=== PATIENT | female | born 1930 | race Caucasian/White ===

== ENCOUNTER 2017-05-07 14:01 | Inpatient (IN) ==
--- NOTE | 2017-05-07 14:25 | Emergency Department Note ---
START Narrative - START START: I examined this patient and my medical decision-making was reviewed with the TUBE OPERATOR/PA/Advanced Practice Nurse/Resident Physician. I agree with the documented findings, disposition and treatment plan as described except to the extent set forth below. ED attending: Patient's emergency medicine resident Dr. JOSE ALEJANDRO ZULETA. Please see copy of this note for H&P evaluation and management and ED disposition. We both had independent [id number] time in contact with this patient. Briefly: A 87-year-old female by EMS after mechanical fall while helping to move family member. Patient, sat down and injured her right proximal thigh. She has some soft tissue swelling possibly hematoma and decreased range of motion concerning for possible joint injury or fracture. Patient getting x- rays. Patient is not on any blood thinners. Disposition pending.
--- NOTE | 2017-05-07 14:27 | Emergency Department Note ---
Disposition Clinical Impression: Intertrochanteric fracture of femur Qualifiers: Encounter type: initial encounter Fracture type: closed Fracture alignment: displaced Laterality: right Qualified Code(s): S72.141A - Displaced intertrochanteric fracture of right femur, initial encounter for closed fracture Subtrochanteric fracture of femur Qualifiers: Encounter type: initial encounter Fracture type: closed Fracture alignment: displaced Laterality: right Qualified Code(s): S72.21XA - Displaced subtrochanteric fracture of right femur, initial encounter for closed fracture Disposition: Admitted As Inpatient Condition: Fair Time of Disposition: 16:42 Fall HPI - General Chief Complaint: ED Fall Stated Complaint: fall Time Seen by Provider: 05/07/17 14:03 Source: patient Mode of arrival: EMS Limitations: no limitations Nursing Notes Reviewed: Yes Vital Signs Reviewed: Yes - History of Present Illness HPI Narrative: Patient presents to the ED via EMS after a fall. Patient reports that her daughter was recently seen at orthopedics for foot fracture and was placed in a cast. They were helping her ambulate back to their home in a walker when her daughter started to fall backwards. Patient states that she sat on the ground and her daughter fell onto her right hip. Had immediate pain and a snapping sensation in her proximal femur. States that since then she has been nonambulatory. Has no pelvis pain or back pain. No head injury, loss of consciousness. No chest pain or shortness of breath. Is not on any blood thinners - Related Data Home Medications Medication Instructions Recorded Confirmed Calcium Carbonate [Calcium] 600 mg PO BID 11/01/16 05/07/17 CarBAMazepine [Carbamazepine ER] 100 mg PO BID 11/01/16 05/07/17 Cholecalciferol (Vitamin D3) 2,000 unit PO BID 11/01/16 05/07/17 [Vitamin D3] Docusate [Colace] 100 mg PO BID 11/01/16 05/07/17 Flurbiprofen 100 mg PO HS PRN 11/01/16 05/07/17 Inulin [Fiber Gummies] 2 gm PO QAM 11/01/16 05/07/17 Tramadol HCl [Ultram] 50 mg PO Q4H PRN 11/01/16 05/07/17 Sennosides/Docusate Sodium [Senna 1 each PO QPM PRN 11/06/17 11/06/17 Plus] Allergies Allergy/AdvReac Type Severity Reaction Status Date / Time codeine Allergy Rash Verified 11/01/16 19:10 Sulfa (Sulfonamide Allergy Rash Verified 11/01/16 19:10 Antibiotics) All systems ED: reviewed and negative except as stated. Constitutional: Denies: fever Cardiovascular: Denies: chest pain Gastrointestinal: Denies: vomiting Musculoskeletal: Reports: as per HPI. Denies: back pain Fall PMH - Past Medical History Medical history: Reports: arthritis Psychiatric history: Reports: no psych history - Social History Smoking Status: Never smoker Alcohol use: Reports: none Drug use: Reports: none Physical Exam - General Limitations: no limitations General appearance: alert, in no apparent distress - Head Head exam: atraumatic, normocephalic, normal inspection - Eye Eye exam: Present: normal appearance, PERRL, EOMI - Neck Neck exam: Present: normal inspection, full ROM, trachea midline - Chest Chest inspection: Present: normal inspection, symmetric chest wall rise - Respiratory Respiratory exam: Present: normal lung sounds bilaterally - Cardiovascular Cardiovascular exam: Present: regular rate, normal rhythm, normal heart sounds - Abdominal Exam Abdominal exam: Present: soft, Non-Tender. Absent: tenderness, distention, guarding, rebound, rigidity - Expanded Lower Extremity Exam Hip/Pelvis exam: Present: normal inspection, external rotation, pelvis stable. Absent: tenderness Upper leg exam: Present: tenderness, swelling, deformity (proximal). Absent: crepitus, dislocation Knee exam: Present: normal inspection, full ROM Lower leg exam: Present: normal inspection, full ROM Ankle exam: Present: normal inspection, full ROM Foot/toe exam: Present: normal inspection, full ROM Neurovascular/Tendon exam: Present: normal capillary refill. Absent: pulse deficit, sensory deficit - Back Exam Back exam: Present: normal inspection, full ROM. Absent: tenderness - Neurological Exam Neurological exam: Present: alert, oriented X3 - Psychiatric Psychiatric exam: Present: normal affect, normal mood - Skin Skin exam: Present: warm, dry, intact, normal color Course Course Narrative: Patient presenting with a mechanical fall with suspected right femur fracture. We will get x-rays. If broken. We will get preop labs and admit. - Reevaluation(s) Reevaluation #1: Patient has a significantly displaced intertrochanteric and subtrochanteric right femur fracture. Spoke with the on-call orthopedic surgeon and they will take the patient to the OR. Patient admitted to the hospitalist service. Preop labs ordered, EKG ordered, chest x-ray ordered. Vital Signs Temperature 97.5 F L 05/07/17 14:05 Pulse Rate 79 05/07/17 14:05 Respiratory Rate 16 05/07/17 14:05 Blood Pressure 146/84 05/07/17 14:05 O2 Sat by Pulse Oximetry 95 05/07/17 14:05 Temperature 97.5 F L 05/07/17 14:05 Pulse Rate 84 05/07/17 16:13 Respiratory Rate 16 05/07/17 16:13 Blood Pressure 155/70 05/07/17 16:13 O2 Sat by Pulse Oximetry 98 05/07/17 16:13 Oxygen Delivery Oxygen Delivery Room Air Fall - Medical Records Medical records reviewed: Yes I reviewed the patient's medical records. - Lab Data Lab results reviewed: Yes I reviewed the patient's lab results. Result diagrams: 05/07/17 15:00 05/07/17 15:00 Lab Results 05/07/17 05/07/17 05/07/17 Range/Units 15:00 15:00 15:00 WBC 4.4 (4.3-11.1) K/mcL RBC 3.88 (3.82-4.97) M/mcL Hgb 12.7 (11.5-15.4) g/dL Hct 38.8 (35.3-44.9) % MCV 100.0 (83.0-100.0) fL MCH 32.7 (28.0-33.3) pg MCHC 32.7 (31.6-35.5) g/dL RDW 13.2 (11.5-14.5) % Plt Count 232 (140-400) K/mcL MPV 9.5 (9.4-12.4) fL Immature Gran % 0.5 (0-4) % Seg Neutrophils % 65.8 % Lymphocytes % 20.0 % Monocytes % 9.6 % Eosinophils % 3.2 % Basophils % 0.9 % Neutrophils # 2.9 (1.6-8.9) K/mcL Lymphocytes # 0.9 (0.6-4.6) K/mcL Monocytes # 0.4 (0.0-1.3) K/mcL Eosinophils # 0.1 (0.0-0.6) K/mcL Basophils # 0.0 (0.0-0.2) K/mcL PT 10.7 (9.4-12.1) Seconds INR 1.0 APTT 28.0 (26.0-36.0) Seconds Sodium 141 (136-145) mEq/L Potassium 4.1 (3.5-4.5) mEq/L Chloride 104 (98-109) mEq/L Carbon Dioxide 28 (19-29) mEq/L BUN 18 (7-20) mg/dL Creatinine 0.77 (0.57-1.11) mg/dL Est GFR ( Amer) > 60 (> 60) Est GFR (Non-Af Amer) > 60 (> 60) BUN/Creatinine Ratio 23 (6-26) Glucose 110 H (70-99) mg/dL Calculated Osmolality 295 (280-300) Calcium 9.5 (8.6-10.8) mg/dL - Radiology Data Radiology results reviewed: Yes I reviewed the patient's radiology results. Femur X-Ray 05/07/17 14:19 IMPRESSION: Acute, comminuted, displaced, markedly angulated right intertrochanteric/subtrochanteric fracture. Osteopenia. D/ /07/2017 15:12:37 Jam Escobar MD / gustavo Interpreting Provider: Jam Escobar MD Pelvis X-Ray 05/07/17 14:25 IMPRESSION: Acute, comminuted, displaced, markedly angulated right intertrochanteric/subtrochanteric fracture. Osteopenia. D/ 05/07/2017 15:12:37 Jam Escobar MD / gustavo Interpreting Provider: Jam Escobar MD - EKG Data EKG attestation: Yes I reviewed and interpreted this EKG. EKG results narrative: Sinus rhythm, rate 81, MO interval 187, QRS 93, QTc 387, normal axis, no acute ischemic changes
[2017-05-07 15:11] LABS: Basophils % 0.9 %; Eosinophils # 0.1 K/mcL (0.0-0.6); Eosinophils % 3.2 %; Hematocrit 38.8 % (35.3-44.9); Hemoglobin 12.7 g/dL (11.5-15.4); Immature Granulocytes % 0.5 % (0-4); Lymphocytes # 0.9 K/mcL (0.6-4.6); Mean Corpuscular HGB Conc 32.7 g/dL (31.6-35.5); Mean Corpuscular Hemoglobin 32.7 pg (28.0-33.3); Mean Platelet Volume 9.5 fL (9.4-12.4); Monocytes # 0.4 K/mcL (0.0-1.3); Monocytes % 9.6 %; Neutrophils # 2.9 K/mcL (1.6-8.9); Platelet Count 232 K/mcL (140-400); Red Blood Count 3.88 M/mcL (3.82-4.97); Red Cell Distribution Width 13.2 % (11.5-14.5); Segmented Neutrophils % 65.8 %
[2017-05-07 15:24] LABS: BUN/Creatinine Ratio 23 (6-26); Blood Urea Nitrogen 18 mg/dL (7-20); Calcium 9.5 mg/dL (8.6-10.8); Carbon Dioxide 28 mEq/L (19-29); Chloride 104 mEq/L (98-109); Glucose 110 mg/dL (70-99); Osmolality,Calculated 295 (280-300); Potassium 4.1 mEq/L (3.5-4.5); Sodium 141 mEq/L (136-145); eGFR For African Americans > 60 (> 60); eGFR For Non-African Americans > 60 (> 60)
[2017-05-07 15:25] LABS: Prothrombin Time 10.7 Seconds (9.4-12.1)
[2017-05-07] MEDS ORDERED: Sennosides/Docusate Sodium TABLET PO PRN ×2 (16:05→18:56)
[2017-05-07] MEDS ORDERED: traMADol 50 MG TABLET PO PRN (16:05)
[2017-05-07] MEDS ORDERED: Naloxone 0.4 MG/ML INJ IVP PRN ×3 (16:11→18:56)
--- NOTE | 2017-05-07 16:34 | Internal Med History&Physical ---
Date of Encounter: 05/07/17 Time of Encounter: 16:32 Assessment and Plan (1) Right femoral fracture Current visit: Yes Status: Acute Mildly commuted fracture of right intertrochanteric and subtrochanteric femur, traumatic fall this afternoon. Swelling/deformity noted, mild tenderness to palpation. Patient reports pain is tolerable. NSR, hemodynamically stable and no distress this time. Patient appears good functional capacity, denies any cardiopulmonary disease, or renal disease. Consults orthopedic surgery-patient will need traction and surgical repair; Dr. Becerra spoke with ortho Continue home tramadol for pain management EKG obtained for surgical clearance normal sinus rhythm. DVT prophylaxis for now Qualifiers: Encounter type: initial encounter Femur location: intertrochanteric Fracture type: closed Fracture alignment: displaced Qualified Code(s): S72.141A - Displaced intertrochanteric fracture of right femur, initial encounter for closed fracture Internal Medicine - H&P: HPI Chief complaint: Right hip fracture Admitted From: Home Plans for Post Hospital Care: Home History of present illness: Ms. Lara is a 87 year old female with no prior past medical history presents to the [facility] today for a follow, not experiencing right hip pain. She reports that she was helping her daughter do back to the car from an appointment [facility] joint, her daughter lost her balance knocking her down and landing on her right hip. Reports that she heard a snap sound began experiencing pain. X-ray of the pelvis reveals mildly comminuted fracture of right intertrochanteric and subtrochanteric femur Past Med Surg Social Fam HX - Past Medical History Medical history: arthritis Psychiatric history: no psych history - Social History Smoking Status: Never smoker Smokeless Tobacco Status: No Alcohol use: none Drug use: none - Additional Family History Additional family history: Noncontributory Internal Medicine - H&P: Meds Calcium Carbonate [Calcium] 600 mg PO BID 11/01/16 [History] CarBAMazepine [Carbamazepine ER] 100 mg PO BID 11/01/16 [History] Cholecalciferol (Vitamin D3) [Vitamin D3] 2,000 unit PO BID 11/01/16 [History] Docusate [Colace] 100 mg PO BID 11/01/16 [History] Flurbiprofen 100 mg PO HS PRN 11/01/16 [History] Inulin [Fiber Gummies] 2 gm PO QAM 11/01/16 [History] Tramadol HCl [Ultram] 50 mg PO Q4H PRN 11/01/16 [History] Sennosides/Docusate Sodium [Senna Plus] 1 each PO QPM PRN 05/07/17 [History] 3 Allergy/AdvReac Type Severity Reaction Status Date / Time codeine Allergy Rash Verified 11/01/16 19:10 Sulfa (Sulfonamide Allergy Rash Verified 11/01/16 19:10 Antibiotics) All Systems PM: A 10-system review of systems was performed and is negative for pertinent findings except as documented above in the HPI. - Cardiovascular Cardiovascular ROS IM: no chest pain, no diaphoresis, no dyspnea, no lightheadedness, no palpitations, no syncope - Musculoskeletal Musculoskeletal ROS IM: as per HPI, deformity, limited range of motion - Constitutional Vitals: Temp Pulse Resp BP Pulse Ox 97.5 F L 84 16 155/70 98 05/07/17 14:05 05/07/17 16:13 05/07/17 16:13 05/07/17 16:13 05/07/17 16:13 General appearance: Present: cooperative, A&O X 3, answers questions appropriately - Respiratory Respiratory exam: Present: CTAB. Absent: accessory muscle use, rales, rhonchi, wheezes - Cardiovascular Cardiovascular exam: Present: RRR, +S1, +S2. Absent: diastolic murmur, gallop, rubs, systolic murmur - Extremities Exam Extremities exam: Present: normal capillary refill, warm, radial pulses palpable and symmetrical. Absent: calf tenderness, full ROM, mottling, pedal edema, tenderness - Expanded Lower Extremities Exam Upper Leg exam: Absent: full ROM (WM) Knee exam: Absent: full ROM (WM) Lower Leg exam: Absent: full ROM (WM) Gait: Present: not tested/not observed, unable to bear weight Internal Med - H&P Results - Labs CBC & Chem 7: 05/07/17 15:00 05/07/17 15:00 - EKG Data -: EKG Interpreted by Myself EKG shows normal: sinus rhythm - EKG Data Prior EKG available for review: yes When compared to previous EKG: there is no significant change Interpretation IM: normal EKG - Diagnostic Studies Other Images Status: image reviewed by me Additional comments: Acute, comminuted, displaced, markedly angulated right intertrochanteric/subtrochanteric fracture. Osteopenia.
[2017-05-07] MEDS ORDERED: Ondansetron 4 MG/2 ML VIAL ONE (17:00)
[2017-05-07] MEDS ORDERED: *HR* Rocuronium Bromide 50 MG/5 ML VIAL ONE (17:00)
[2017-05-07] MEDS ORDERED: Dexamethasone 4 MG/ML VIAL ONE (17:00)
[2017-05-07] MEDS ORDERED: *HR* Etomidate 40 MG/20 ML VIAL IVP ONE (17:00)
[2017-05-07] MEDS ORDERED: Lidocaine -MPF 2% 2 ML VIAL ONE (17:00)
[2017-05-07] MEDS ORDERED: *HR* Succinylcholine 200 MG/10 ML VIAL IVP ONE (17:00)
[2017-05-07] MEDS ORDERED: Lidocaine -MPF 4% 5 ML AMPUL ONE (17:00)
[2017-05-07] MEDS ORDERED: *HR* Propofol 200 MG/20 ML VIAL IVP ONE (17:02)
[2017-05-07] MEDS ORDERED: *HR* FentaNYL (PF) 100 MCG/2 ML VIAL ONE (17:02)
--- NOTE | 2017-05-07 17:03 | Orthopedic Consult Note ---
Date of Encounter: 05/07/17 Time of Encounter: 16:00 Assessment and Plan (1) Intertrochanteric fracture of femur Current Visit: Yes Status: Acute Patient evaluated in ED. Patient reports that her daughter fell on her this afternoon, patient fell to hard surface outside. XRAYs reviewed - revealed subtrochanteric and intertrochanteric femur fractures. Orthopedic recommendations discussed with the patient, both conservative and surgical. Patient opted to proceed with surgical repair, to optimize recovery and future ambulation. Consent reviewed with patient, plan for OR today with for a Right hip Open reduction and intramedullary nail fixation. Patient last ate at 8AM, nothing to eat or drink since this time. Patient agreed to consent, and signed. All questions were addressed and answered. Batista catheter placed by ED. NPO. Bedrest. DVT prophylaxis will be needed. I spoke with , admitting hospitalist, and he has cleared the patient for surgery. Qualifiers: Encounter type: initial encounter Fracture type: closed Fracture alignment: displaced Laterality: right Qualified Code(s): S72.141A - Displaced intertrochanteric fracture of right femur, initial encounter for closed fracture (2) Subtrochanteric fracture of femur Current Visit: Yes Status: Acute Qualifiers: Encounter type: initial encounter Fracture type: closed Fracture alignment: displaced Laterality: right Qualified Code(s): S72.21XA - Displaced subtrochanteric fracture of right femur, initial encounter for closed fracture History of Present Illness Chief complaint: Right HPI: Patient seen and evaluated in ED. Ms. Lara is a 87 year old female, sustained a Right Femur Fracture after he daughter fell on her this afternoon while she was helping her get out of the car. Patient denies hitting her head, LOC, dizziness or N/V. She was unable to ambulate secondary to pain in her right hip. She denies N/T into RLE. Prior to her fall, she was ambulating well on her own without assistance. Pain controlled currently with pain medication given in ED. XRAYS in the ED: XR/XR femur RT IMPRESSION: Acute, comminuted, displaced, markedly angulated right intertrochanteric/subtrochanteric fracture. Osteopenia. Patient denies previous trauma or fracture. She is otherwise healthy, takes NSAID for her left knee pain and occasionally Tramadol at night for pain. Past Med Surg Social Fam HX - Past Medical History Medical history: arthritis Psychiatric history: no psych history - Social History Smoking Status: Never smoker Smokeless Tobacco Status: No Alcohol use: none Drug use: none Medications and Allergies Calcium Carbonate [Calcium] 600 mg PO BID 11/01/16 [History] CarBAMazepine [Carbamazepine ER] 100 mg PO BID 11/01/16 [History] Cholecalciferol (Vitamin D3) [Vitamin D3] 2,000 unit PO BID 11/01/16 [History] Docusate [Colace] 100 mg PO BID 11/01/16 [History] Flurbiprofen 100 mg PO HS PRN 11/01/16 [History] Inulin [Fiber Gummies] 2 gm PO QAM 11/01/16 [History] Tramadol HCl [Ultram] 50 mg PO Q4H PRN 11/01/16 [History] Sennosides/Docusate Sodium [Senna Plus] 1 each PO QPM PRN 05/07/17 [History] 3 Allergy/AdvReac Type Severity Reaction Status Date / Time codeine Allergy Rash Verified 11/01/16 19:10 Sulfa (Sulfonamide Allergy Rash Verified 11/01/16 19:10 Antibiotics) All Systems Reviewed: A 10-system review of systems was performed and is negative for pertinent findings except as documented above in the HPI. Physical Exam - Constitutional Vitals: Temp Pulse Resp BP Pulse Ox 97.5 F L 84 16 155/70 98 05/07/17 14:05 05/07/17 16:13 05/07/17 16:13 05/07/17 16:13 05/07/17 16:13 General appearance IM: mild distress, A&O X 3, answers questions appropriately - Fracture right hip Location of fracture: Right Femur - intertrochanteric, subtrochanteric Appearance: swelling, other (shortened and ER) Compartments: soft Distal extremity neurovascularly intact: Yes Proximal joint involvement: No Distal joint involvement: No Other injury: muscle injury: no, tendon injury: no, vascular injury: no, nerve injury: no Results - Labs Result Diagrams: 05/07/17 15:00 05/07/17 15:00 Labs: Abnormal lab results Glucose 110 mg/dL (70-99) H 05/07/17 15:00 All other labs normal. - Diagnostic results Hip x-ray: report reviewed, image reviewed Consult Discharge Plan - Plan Referrals: Ewelina Leonard MD [Primary Care Provider] -
[2017-05-07] MEDS ORDERED: Acetaminophen IV 1,000 MG/100 ML INFUS..BTL ONE (17:09)
--- NOTE | 2017-05-07 17:18 | Anesthesia Evaluation PreOp ---
Date of Encounter: 05/07/17 Time of Encounter: 17:17 - Past History Planned Operation: R hip TFN Cardiac History: Denies any Significant Hx Pulmonary History: Denies Any Significant HX LEAD QUALITY CONTROL TECHNICIAN History: Denies Any Significant HX Other Medical History: Other (arthritis) Anesthesia History: No Prior Anesthetic Complications Alcohol Use: none Drug use: none Medications and Allergies Calcium Carbonate [Calcium] 600 mg PO BID 11/01/16 [History] CarBAMazepine [Carbamazepine ER] 100 mg PO BID 11/01/16 [History] Cholecalciferol (Vitamin D3) [Vitamin D3] 2,000 unit PO BID 11/01/16 [History] Docusate [Colace] 100 mg PO BID 11/01/16 [History] Flurbiprofen 100 mg PO HS PRN 11/01/16 [History] Inulin [Fiber Gummies] 2 gm PO QAM 11/01/16 [History] Tramadol HCl [Ultram] 50 mg PO Q4H PRN 11/01/16 [History] Sennosides/Docusate Sodium [Senna Plus] 1 each PO QPM PRN 05/07/17 [History] 3 Allergy/AdvReac Type Severity Reaction Status Date / Time codeine Allergy Rash Verified 11/01/16 19:10 Sulfa (Sulfonamide Allergy Rash Verified 11/01/16 19:10 Antibiotics) - Meds/Allergy Pre-op Review Medications Reviewed: Yes Allergies Reviewed: Yes Beta Blockers on Current Med List: No Anesthesia Results - Labs 05/07/17 15:00 05/07/17 15:00 Anesthesia Exam Last Vital Signs Temp 97.5 F L 05/07/17 14:05 Pulse 84 05/07/17 16:13 Resp 16 05/07/17 16:13 BP 155/70 05/07/17 16:13 Pulse Ox 98 05/07/17 16:13 Weight: 61 kg NPO (# of Hours): > 8 hrs - HEENT Pupil (Motor): Pupils equal, EOMI Mallampati: II Teeth: Normal Oral Opening: Greater than 3 - LEAD QUALITY CONTROL TECHNICIAN LOC: Oriented LEAD QUALITY CONTROL TECHNICIAN Motor: Normal RUE, Normal LUE, Normal RLE, Normal LLE, Normal Face - Cardiac Rhythm: Regular Murmur: None - Pulmonary Breath Sounds: bilateral Clear Respiratory Effort: Symmetrical Anesthesia Assess/Plan ASA Score: 2 Modified Grafton Scale for Level of Consciousness: Cooperative, oriented, and tranquil Anesthetic Plan: General Monitoring Plan: Standard Monitors Recovery Plan: PACU
[2017-05-07] MEDS ORDERED: EPHEDrine 50 MG/ML VIAL ONE ×2 (17:23→18:28)
[2017-05-07] MEDS ORDERED: Ondansetron 4 MG/2 ML VIAL IVP PRN ×2 (17:49→18:21)
--- NOTE | 2017-05-07 17:51 | Event Note ---
Date of Encounter: 05/07/17 Time of Encounter: 17:50 Patient seen and examined with nurse practitioner. hip fracture after mechanical fall. Patient has good functional capacity > 4 mets. No prior cardiac history. No chest pain with exertion. No clinical predictors. EKG shows no ST segment shifts. She should be able to tolerate surgery with no need for further preoperative cardiac testing. She is full code
[2017-05-07] MEDS ORDERED: 0.9 % Sodium Chloride 1,000 ML IVC SCH (18:00)
[2017-05-07] MEDS ORDERED: *HR* HYDROmorphone (PF) 1 MG/ML SYRINGE IVP PRN ×2 (18:21→18:56)
--- NOTE | 2017-05-07 18:37 | Orthopedic Operative Note ---
Date of procedure: 05/07/17 Pre-op diagnosis: Displaced right subtrochanteric hip fracture Post-op diagnosis: same Procedure: Procedure: Right hip open reduction intramedullary nail fixation Estimated blood loss: 200 cc Hardware: Metal: Synthes 130 degree 10 x 210 TFN, 95 helical blade, 36 mm distal locking bolt, one super cable Procedural Notes: Displaced subtrochanteric hip fracture right Operative procedure: The patient was brought to the operating room and placed on the operating room table. After general anesthesia was administered the well leg was place in the well leg clifford and the operative leg was placed in the fracture leg clifford. All pressure points were padded appropriately. The operative extremity was prepped and draped in the sterile surgical fashion patient received IV antibiotic prior to skin incision. A standard direct lateral approach was made over the entry point of the greater trochanter, the incision was made through the skin and subcutaneous tissue hemostasis was obtained with Bovie cautery. Using careful sharp dissection the fascia was identified and incised, flouroscopic assistance was used to identify the entry point. The guidepin was placed at the entry point using fluroscopic assistance, it was over reamed with the proximal reamer. The 10 mm x 210 mm nail was placed through the entry hole, across the fracture site into the distal fragment the reduction was improved but not acceptable. An incision was made at the area of the fracture. Incision made through skin subcutaneous case tissue hemostasis was obtained Bovie cautery using careful blunt dissection fascia was identified and incised. The vastus lateralis fascia was incised as well muscle was elevated up one super cable was passed submuscularly around the fracture site to help reduce the 2 fragments. Reduction was acceptable in AP and lateral planes. A guide pin was placed through the proximal locking guide from the lateral femur through the nail across the fracture site into the femoral head, it was over reamed with the reamer to a depth of 95 mm. The 95 mm helical blade was placed over the guide pin through the nail into the femoral head, locked in place with the proximal locking bolt. 36 mm Distal locking bolt was placed through the distal locking guide. position of hardware and fracture reduction found to be acceptable with fluroscopic assistance. The 2 wounds was irrigated. Fascia was closed with a running #2 PDS suture. The deep tissue was irrigated and closed deep with #1 PDS suture superficially with 0 PDS suture and skin was closed with zip tie. The patient was placed in a sterile dressing The patient was extubated and transferred to the recovery room in stable condition. Anesthesia: GETA Surgeon: Michelet Live Condition: stable Disposition: PACU
[2017-05-07] MEDS ORDERED: *HR* OxyCODONE Immed Rel 5 MG TABLET PO PRN ×2 (18:56)
[2017-05-07] MEDS ORDERED: Sennosides 8.6 MG TABLET PO PRN (18:56)
[2017-05-07] MEDS ORDERED: FLURBIPROFEN 100 MG PO PRN (18:56)
[2017-05-07] MEDS ORDERED: Ringers Solution, Lactated 1,000 ML ONE (19:02)
--- NOTE | 2017-05-07 19:10 | Anesthesia Evaluation Post Op ---
Date of Encounter: 05/07/17 Time of Encounter: 19:09 - Vital Signs Vital Signs: Last Vital Signs Temp 97.5 F L 05/07/17 14:05 Pulse 84 05/07/17 16:13 Resp 16 05/07/17 16:13 BP 155/70 05/07/17 16:13 Pulse Ox 98 05/07/17 16:13 - Lungs Lungs: Clear Ascult./Percussion - Airway Airway: Non-obstructed - Cardiovascular Regular Rate - Mental Status Mental Status: Alert & Oriented, Answers Appropriately - Pain Pain Scale: 2 - Nausea Vomiting Nausea Vomiting: Not Present - Hydration Hydration: NPO - Discharge PostOp Status: Transfer Patient to floor
[2017-05-07 19:12] LABS: Hematocrit 31.9 % (35.3-44.9)
[2017-05-07 19:19] LABS: Hemoglobin 10.6 g/dL (11.5-15.4)
[2017-05-07] MEDS: Ringers Solution, Lactated 1,000 ML IVC SCH (19:45)
[2017-05-07] MEDS ORDERED: CarBAMazepine 100 MG TABLET PO SCH (21:00)
[2017-05-07] MEDS: CarBAMazepine 100 MG TABLET PO SCH (21:32)
[2017-05-07] MEDS: traMADol 50 MG TABLET PO PRN (21:35)
[2017-05-08] MEDS: CeFAZolin Premix DUPLEX 2,000 MG/50 ML BAG IVPB SCH ×2 (00:07→07:43)
--- NOTE | 2017-05-08 06:50 | Orthopedics Progress Note ---
Date of Encounter: 05/08/17 Time of Encounter: 06:50 Subjective Interval history: Patient was seen this morning doing well without complaints. Afebrile vital signs stable. Operative extremity: Neurovascularly intact Dressing clean dry and intact Calves nontender Assessment and plan: Continue with postoperative care Objective Vital signs: Vital Signs Temp Pulse Resp BP Pulse Ox 05/08/17 03:35 98.8 F 85 18 98/65 94 05/08/17 01:13 97.7 F 95 17 103/50 95 05/07/17 22:00 97.6 F 86 15 128/53 99 05/07/17 21:00 97.7 F 78 14 122/53 100 05/07/17 20:34 97.9 F 85 15 128/69 100 05/07/17 20:13 100 05/07/17 20:00 97.9 F 89 15 133/70 100 05/07/17 19:45 97.9 F 88 16 102/67 100 05/07/17 19:20 98.1 F 91 15 130/67 100 05/07/17 19:10 90 16 122/67 100 05/07/17 19:00 88 16 112/53 100 05/07/17 18:50 98.1 F 84 16 126/60 99 Intake and Output 05/07/17 05/07/17 05/08/17 15:59 23:59 07:59 Intake Total 100 / 100 400 / 400 Output Total 200 / 200 450 / 450 Balance -100 / -100 -50 / -50 Intake: IV Fluids 50 / 50 Ancef Premix DUPLEX 2,000 mg In 50 / 50 50 ml @ 100 mls/hr IVPB Q8HR [facility] Rx#:[id number] Oral 100 / 100 350 / 350 Output: Estimated Blood Loss 200 / 200 Catheter 450 / 450 - Labs CBC & BMP: 05/07/17 19:01 05/07/17 15:00 Labs: Abnormal lab results Hgb 10.6 g/dL (11.5-15.4) L D 05/07/17 19:01 Hct 31.9 % (35.3-44.9) L 05/07/17 19:01 Glucose 110 mg/dL (70-99) H 05/07/17 15:00 - VTE Documentation of Mechanical Device: Venous foot pump, device Consult Discharge Plan - Plan Referrals: Ewelina Leonard MD [Primary Care Provider] -
[2017-05-08] MEDS: Ringers Solution, Lactated 1,000 ML IVC SCH (07:43)
[2017-05-08] MEDS: Cholecalciferol (D-3) 1,000 UNIT TABLET PO SCH (07:43)
[2017-05-08] MEDS: CarBAMazepine 100 MG TABLET PO SCH ×2 (07:43→22:06)
[2017-05-08 08:15] LABS: Hematocrit 31.9 % (35.3-44.9); Hemoglobin 10.1 g/dL (11.5-15.4)
[2017-05-08] MEDS ORDERED: INULIN 2 GM PO SCH (09:00)
[2017-05-08] MEDS: traMADol 50 MG TABLET PO PRN ×3 (12:05→22:08)
[2017-05-08] MEDS: Aspirin Enteric Coated 81 MG Tablet PO SCH (17:16)
--- NOTE | 2017-05-08 23:27 | Internal Med Progress Note ---
Date of Encounter: 05/08/17 Time of Encounter: 13:17 - Assessment and plan (1) Right femoral fracture Current Visit: Yes Status: Acute Assessment and plan: S/p right hip open reduction intramedullary nail fixation on 05/07. Patient doing well. Ortho following. Continue supportive care; pain management. Qualifiers: Encounter type: initial encounter Femur location: intertrochanteric Fracture type: closed Fracture alignment: displaced Qualified Code(s): S72.141A - Displaced intertrochanteric fracture of right femur, initial encounter for closed fracture (2) Intertrochanteric fracture of femur Current Visit: Yes Status: Acute Qualifiers: Encounter type: initial encounter Fracture type: closed Fracture alignment: displaced Laterality: right Qualified Code(s): S72.141A - Displaced intertrochanteric fracture of right femur, initial encounter for closed fracture (3) Subtrochanteric fracture of femur Current Visit: Yes Status: Acute Qualifiers: Encounter type: initial encounter Fracture type: closed Fracture alignment: displaced Laterality: right Qualified Code(s): S72.21XA - Displaced subtrochanteric fracture of right femur, initial encounter for closed fracture - Subjective Interval history: No acute events. Patient has no complaints. - Constitutional Vitals: Temp Pulse Resp BP Pulse Ox 98.1 F 105 16 112/71 95 05/08/17 22:19 05/08/17 22:19 05/08/17 22:19 05/08/17 22:19 05/08/17 22:19 General appearance: Present: cooperative, A&O X 3, answers questions appropriately Exam: - Respiratory Respiratory exam: Present: CTAB. Absent: accessory muscle use, rales, rhonchi, wheezes - Cardiovascular Cardiovascular exam: Present: RRR, +S1, +S2. Absent: diastolic murmur, gallop, rubs, systolic murmur - Extremities Exam Extremities exam: Present: normal capillary refill, warm, radial pulses palpable and symmetrical. Absent: calf tenderness, full ROM, mottling, pedal edema, tenderness - Expanded Lower Extremities Exam Upper Leg exam: Absent: full ROM (WM) Knee exam: Absent: full ROM (WM) Lower Leg exam: Absent: full ROM (WM) Right leg (post/op): Incision post op c/d/i Internal Medicine: Result - Labs CBC & Chem 7: 05/08/17 07:14 05/07/17 15:00 Labs: Short CBC 05/08/17 Range/Units 07:14 Hgb 10.1 L (11.5-15.4) g/dL Hct 31.9 L (35.3-44.9) % - ABG Interpretation ABG results: PT/INR, D-dimer PT 10.7 Seconds (9.4-12.1) 05/07/17 15:00 - VTE Documentation of Mechanical Device: Venous foot pump, device Consult Discharge Plan - Plan Referrals: Ewelina Leonard MD [Primary Care Provider] -
[2017-05-09 05:19] LABS: Hematocrit 24.5 % (35.3-44.9)
[2017-05-09 05:36] LABS: Hemoglobin 8.2 g/dL (11.5-15.4)
[2017-05-09] MEDS: traMADol 50 MG TABLET PO PRN ×2 (06:05→20:25)
--- NOTE | 2017-05-09 07:33 | Electrocardiograph Report ---
[place] [id number] Test Date: 2017-05-07 Pat Name: Deanne Lara Department: 102 Room: [facility] Gender: F Civil Engineering Assistant: Angie : [id number] Requested By: Dustin Mejia Order Number: [id number] Reading MD: Richard Massey MD Measurements Intervals [place] Rate: 81 P: 79 UT: 187 QRS: 29 QRSD: 93 T: 27 QT: 349 QTc: 387 Interpretive Statements SINUS RHYTHM Electronically Signed On 05-09-2017 7:31:32 EST by Richard Massey MD
--- NOTE | 2017-05-09 07:51 | Orthopedics Progress Note ---
Date of Encounter: 05/09/17 Time of Encounter: 07:50 Subjective Interval history: Patient was seen this morning doing well without complaints. Afebrile vital signs stable. Operative extremity: Neurovascularly intact Dressing clean dry and intact Calves nontender Assessment and plan: Continue with postoperative care Hematocrit 24 recommend one unit packed red blood cells. Objective Vital signs: Vital Signs Temp Pulse Resp BP Pulse Ox 05/08/17 23:55 98.4 F 106 17 94/56 91 05/08/17 22:19 98.1 F 105 16 112/71 95 05/08/17 15:49 98.3 F 108 15 93/53 96 05/08/17 11:33 98.2 F 97 14 110/58 94 Intake and Output 05/08/17 05/08/17 05/09/17 15:59 23:59 07:59 Intake Total 360 / 360 850 / 850 400 / 400 Output Total 1200 / 1200 400 / 400 Balance 360 / 360 -350 / -350 0 / 0 Intake: Oral 360 / 360 850 / 850 400 / 400 Output: Urine 1200 / 1200 400 / 400 Other: Meal Breakfast Dinner Percent of Meal Consumed 50% 50% # Voids 2 - Labs CBC & BMP: 05/09/17 04:51 05/07/17 15:00 Labs: Abnormal lab results Hgb 8.2 g/dL (11.5-15.4) L D 05/09/17 04:51 Hct 24.5 % (35.3-44.9) L 05/09/17 04:51 Glucose 110 mg/dL (70-99) H 05/07/17 15:00 - VTE Documentation of Mechanical Device: Venous foot pump, device Consult Discharge Plan - Plan Referrals: Ewelina Leonard MD [Primary Care Provider] -
[2017-05-09] MEDS: Cholecalciferol (D-3) 1,000 UNIT TABLET PO SCH (09:11)
[2017-05-09] MEDS: Aspirin Enteric Coated 81 MG Tablet PO SCH (09:11)
[2017-05-09] MEDS: CarBAMazepine 100 MG TABLET PO SCH ×2 (09:12→20:23)
[2017-05-09] MEDS ORDERED: 0.9 % Sodium Chloride 250 ML ONE (14:17)
[2017-05-10 06:49] LABS: Hematocrit 28.3 % (35.3-44.9); Hemoglobin 9.5 g/dL (11.5-15.4)
[2017-05-10] MEDS: Aspirin Enteric Coated 81 MG Tablet PO SCH (09:21)
[2017-05-10] MEDS: Cholecalciferol (D-3) 1,000 UNIT TABLET PO SCH (09:25)
[2017-05-10] MEDS: CarBAMazepine 100 MG TABLET PO SCH ×2 (09:29→22:12)
[2017-05-10] MEDS: traMADol 50 MG TABLET PO PRN ×2 (09:42→22:22)
--- NOTE | 2017-05-10 23:48 | Internal Med Progress Note ---
Date of Encounter: 05/09/17 Time of Encounter: 14:57 - Assessment and plan (1) Right femoral fracture Current Visit: Yes Status: Acute Assessment and plan: S/p right hip open reduction intramedullary nail fixation on 05/07. Patient doing well. Ortho following. Continue supportive care; pain management. Qualifiers: Encounter type: initial encounter Femur location: intertrochanteric Fracture type: closed Fracture alignment: displaced Qualified Code(s): S72.141A - Displaced intertrochanteric fracture of right femur, initial encounter for closed fracture (2) Intertrochanteric fracture of femur Current Visit: Yes Status: Acute Qualifiers: Encounter type: initial encounter Fracture type: closed Fracture alignment: displaced Laterality: right Qualified Code(s): S72.141A - Displaced intertrochanteric fracture of right femur, initial encounter for closed fracture (3) Subtrochanteric fracture of femur Current Visit: Yes Status: Acute Qualifiers: Encounter type: initial encounter Fracture type: closed Fracture alignment: displaced Laterality: right Qualified Code(s): S72.21XA - Displaced subtrochanteric fracture of right femur, initial encounter for closed fracture - Subjective Interval history: No acute events. Patient has no complaints. - Constitutional Vitals: Temp Pulse Resp BP Pulse Ox 99.1 F 99 18 114/66 92 05/10/17 20:41 05/10/17 20:41 05/10/17 20:41 05/10/17 20:41 05/10/17 20:41 General appearance: Present: cooperative, A&O X 3, answers questions appropriately Exam: - Respiratory Respiratory exam: Present: CTAB. Absent: accessory muscle use, rales, rhonchi, wheezes - Cardiovascular Cardiovascular exam: Present: RRR, +S1, +S2. Absent: diastolic murmur, gallop, rubs, systolic murmur - Extremities Exam Extremities exam: Present: normal capillary refill, warm, radial pulses palpable and symmetrical. Absent: calf tenderness, full ROM, mottling, pedal edema, tenderness - Expanded Lower Extremities Exam Upper Leg exam: Absent: full ROM (WM) Knee exam: Absent: full ROM (WM) Lower Leg exam: Absent: full ROM (WM) Right leg (post/op): Incision post op c/d/i Internal Medicine: Result - Labs CBC & Chem 7: 05/10/17 06:39 05/07/17 15:00 Labs: Short CBC 05/10/17 Range/Units 06:39 Hgb 9.5 L (11.5-15.4) g/dL Hct 28.3 L (35.3-44.9) % - ABG Interpretation ABG results: PT/INR, D-dimer PT 10.7 Seconds (9.4-12.1) 05/07/17 15:00 - VTE Documentation of Mechanical Device: Venous foot pump, device Consult Discharge Plan - Plan Referrals: Ewelina Leonard MD [Primary Care Provider] - 05/15/17 10:30 am
[2017-05-11] MEDS: CarBAMazepine 100 MG TABLET PO SCH (08:01)
[2017-05-11] MEDS: Cholecalciferol (D-3) 1,000 UNIT TABLET PO SCH (08:01)
[2017-05-11] MEDS: Aspirin Enteric Coated 81 MG Tablet PO SCH (08:01)
[2017-05-11 09:18] VITALS: BP 99/64
--- NOTE | 2017-05-11 14:36 | Discharge Summary ---
Date of Encounter: 05/11/17 Time of Encounter: 14:36 - Discharge Diagnosis (1) Right femoral fracture Priority: Primary Status: Acute Qualifiers: Encounter type: initial encounter Femur location: intertrochanteric Fracture type: closed Fracture alignment: displaced Qualified Code(s): S72.141A - Displaced intertrochanteric fracture of right femur, initial encounter for closed fracture (2) Intertrochanteric fracture of femur Priority: Secondary Status: Acute Qualifiers: Encounter type: initial encounter Fracture type: closed Fracture alignment: displaced Laterality: right Qualified Code(s): S72.141A - Displaced intertrochanteric fracture of right femur, initial encounter for closed fracture (3) Subtrochanteric fracture of femur Priority: Secondary Status: Acute Qualifiers: Encounter type: initial encounter Fracture type: closed Fracture alignment: displaced Laterality: right Qualified Code(s): S72.21XA - Displaced subtrochanteric fracture of right femur, initial encounter for closed fracture - Discharge Medications Prescriptions: OxyCODONE Immed Rel [Roxicodone 5 MG] 5 mg PO BID PRN #10 tablet PRN Reason: Severe Pain Home Medications: Calcium Carbonate [Calcium] 600 mg PO BID 11/01/16 [History] CarBAMazepine [Carbamazepine ER] 100 mg PO BID 11/01/16 [History] Cholecalciferol (Vitamin D3) [Vitamin D3] 2,000 unit PO BID 11/01/16 [History] Docusate [Colace] 100 mg PO BID 11/01/16 [History] Flurbiprofen 100 mg PO HS PRN 11/01/16 [History] Inulin [Fiber Gummies] 2 gm PO QAM 11/01/16 [History] Tramadol HCl [Ultram] 50 mg PO Q4H PRN 11/01/16 [History] Sennosides/Docusate Sodium [Senna Plus] 1 each PO QPM PRN 05/07/17 [History] Aspirin Enteric Coated [Aspirin EC] 162 mg PO DAILY tablet. 05/11/17 [Rx] OxyCODONE Immed Rel [Roxicodone 5 MG] 5 mg PO BID PRN #10 tablet 05/11/17 [Rx] Allergies/Adverse Reactions: 3 Allergy/AdvReac Type Severity Reaction Status Date / Time codeine Allergy Rash Verified 11/01/16 19:10 Sulfa (Sulfonamide Allergy Rash Verified 11/01/16 19:10 Antibiotics) Date of admission: 05/07/17 16:50 Primary care physician: Ewelina Leonard, Consults: 05/07/17 18:56 Consult to Occupational Therapy [CONS] Routine Comment: Evaluate, develop and implement POC Reason for Consult: post hip surgery Consult to Orthopedic Navigator [CONS] [CONS] Routine Consult to Physical Therapy [CONS] Routine Comment: Evaluate, develop and implement POC Reason for Consult: PARTIAL WEIGHT BEARING TO OPERATIVE LEG Consult to Licensing And Registration Director [CONS] Routine Reason for SW Consult: post -op hip fracture RT Post Op Consult [CONS] Routine Discharging clinician: Sully Lange - Patient Status Disposition: Transfer SNF Condition: Fair Functional capacity at discharge: wheelchair bound Overall status at discharge: patient is progressing back to baseline - Discharge Instructions Follow Up With: Ewelina Leonard MD [Primary Care Provider] - 05/15/17 10:30 am - Diet and Activity Activity: as per physical therapy Diet: advance to your usual diet Hospital course: Ms. Lara is a 87 year old female sustained a Right Femur Fracture after he daughter fell on her twhile she was helping her get out of the car. Patient denies hitting her head, LOC, dizziness or N/V. She was unable to ambulate secondary to pain in her right hip. Prior to her fall, she was ambulating well on her own without assistance. X-ray in ED in ED showed acute intertrochanteric/ subtrochanteric fracture. Ortho was consulted, and on 05/07 she underwent right hip ORIF. She tolerated procedure well. She did have a slight decrease in hemoglobin from her baseline of 10, down to 8.2. She required 1 unit PRBC and then hemoglobin remained stable. She has been working with physical therapy and doing well. She was discharged to SNF in stable condition. - Time Spent with Patient Total time spent providing and/or coordinating discharge services: - Constitutional Vitals: Temp Pulse Resp BP Pulse Ox 98.4 F 90 15 99/64 92 05/11/17 09:17 05/11/17 09:17 05/11/17 09:17 05/11/17 09:17 05/11/17 09:17 General appearance: Present: cooperative, A&O X 3, answers questions appropriately Exam: - Respiratory Respiratory exam: Present: CTAB. Absent: accessory muscle use, rales, rhonchi, wheezes - Cardiovascular Cardiovascular exam: Present: RRR, +S1, +S2. Absent: diastolic murmur, gallop, rubs, systolic murmur - Extremities Exam Extremities exam: Present: normal capillary refill, warm, radial pulses palpable and symmetrical. Absent: calf tenderness, full ROM, mottling, pedal edema, tenderness - Expanded Lower Extremities Exam Upper Leg exam: Absent: full ROM (WM) Knee exam: Absent: full ROM (WM) Lower Leg exam: Absent: full ROM (MW) Right leg (post/op): Incision post op c/d/i - VTE Documentation of Mechanical Device: Venous foot pump, device
[2017-05-11] MEDS ORDERED: FLUARIX QUAD 2017-18 36MOS UP/PF 0.5 ML SYRINGE IM ONE (15:15)
--- NOTE | 2017-05-11 16:53 | Physician Discharge Referral ---
[facility] Charge [facility]: PCP Institutional Level of Care: Skilled - Diagnosis (1) Right femoral fracture Priority: Primary Status: Acute (2) Intertrochanteric fracture of femur Priority: Secondary Status: Acute (3) Subtrochanteric fracture of femur Priority: Secondary Status: Acute Prognosis: Fair Aware of Diagnosis: Patient, Family Aware of Prognosis: Patient, Family - Transfer Medications Prescriptions: OxyCODONE Immed Rel [Roxicodone 5 MG] 5 mg PO BID PRN #10 tablet PRN Reason: Severe Pain Home Medications: Calcium Carbonate [Calcium] 600 mg PO BID 11/01/16 [History] CarBAMazepine [Carbamazepine ER] 100 mg PO BID 11/01/16 [History] Cholecalciferol (Vitamin D3) [Vitamin D3] 2,000 unit PO BID 11/01/16 [History] Docusate [Colace] 100 mg PO BID 11/01/16 [History] Flurbiprofen 100 mg PO HS PRN 11/01/16 [History] Inulin [Fiber Gummies] 2 gm PO QAM 11/01/16 [History] Tramadol HCl [Ultram] 50 mg PO Q4H PRN 11/01/16 [History] Sennosides/Docusate Sodium [Senna Plus] 1 each PO QPM PRN 05/07/17 [History] Aspirin Enteric Coated [Aspirin EC] 162 mg PO DAILY tablet. 05/11/17 [Rx] OxyCODONE Immed Rel [Roxicodone 5 MG] 5 mg PO BID PRN #10 tablet 05/11/17 [Rx] Allergies/Adverse Reactions: 3 Allergy/AdvReac Type Severity Reaction Status Date / Time codeine Allergy Rash Verified 11/01/16 19:10 Sulfa (Sulfonamide Allergy Rash Verified 11/01/16 19:10 Antibiotics) - Respiratory Orders Smoking Cessation: Smoking cessation has been advised. For more information, call the [place] Tobacco Quit Line at 4-343-OOPB-NOW. - Ancillary Orders May use pressure relief devices daily prn, May consult with Dentist, Clinical Research Associate, Social Worker Assistant PRN - Mobility Orders Chair - Rehabiliation Orders Rehab Potential: Fair Rehab Orders: ROM Exercises, Evaluation for Physical Therapy, Evaluation for Occupational Therapy - Treatments Skin tear care topically daily PRN per policy - Diet Orders Regular CERTIFICATION: I certify that the transfer of the above named patient to an Extended Care Facility is necessary for the continuing treatment of the diagnosis listed. The above information is true and accurate reflection of patient's current condition. Confidential - Redisclosure prohibited without a patient's written consent.
== END 2017-05-11 18:06 | DRG 482 ==
LOC: EMEROO 14:01 → 3NENU 14:01 → SUATTDRO 16:50 → 3NENU 16:54
PROVIDERS: ADMIT Nurse Practitioner; ATTEND Student in an Organized Health Care Education/Training Program

== ENCOUNTER 2020-12-21 16:26 | Inpatient (IN) ==
[2020-12-21] MEDS ORDERED: ceFAZolin 1,000 MG in Water for inj. (sterile) 10 ML IVP ONE (18:15)
[2020-12-21 18:37] LABS: Bilirubin,Urine Negative (Negative); Blood,Urine Negative (Negative); Clarity,Urine Clear (Clear); Color,Urine Light-Yellow (Yellow); Glucose,Urine (UA) Normal (Normal); Ketones,Urine 40 mg/dL (Negative); Leukocyte Esterase,Urine Negative (Negative); Nitrite,Urine Negative (Negative); Protein,Urine Trace mg/dL (Neg-Trace); Specific Gravity,Urine 1.012 (1.010-1.025); Urobilinogen,Urine Normal (Normal)
[2020-12-21 18:38] LABS: Basophils % 0.4 %; Hematocrit 42.4 % (35.3-44.9); Hemoglobin 14.2 g/dL (11.5-15.4); Immature Granulocytes % 0.4 % (0-4); Lymphocytes # 0.6 K/mcL (0.6-4.6); Lymphocytes % 10.7 %; Mean Corpuscular HGB Conc 33.5 g/dL (31.6-35.5); Mean Corpuscular Hemoglobin 31.8 pg (28.0-33.3); Mean Corpuscular Volume 95.1 fL (83.0-100.0); Mean Platelet Volume 9.5 fL (9.4-12.4); Monocytes # 0.7 K/mcL (0.0-1.3); Monocytes % 12.5 %; Neutrophils # 4.2 K/mcL (1.6-8.9); Platelet Count 195 K/mcL (140-400); Red Blood Count 4.46 M/mcL (3.82-4.97); Red Cell Distribution Width 13.2 % (11.5-14.5); White Blood Count 5.5 K/mcL (4.3-11.1)
[2020-12-21 18:58] LABS: Alanine Aminotransferase 17 Units/L (7-52); Albumin/Globulin Ratio 1.3 (1.1-2.2); Alkaline Phosphatase 42 Units/L (34-104); Aspartate Amino Transferase 31 Units/L (13-39); BUN/Creatinine Ratio 16 (6-26); Bilirubin,Direct 0.1 mg/dL (0.0-0.2); Bilirubin,Indirect 0.5 mg/dL (0.0-1.0); Bilirubin,Total 0.6 mg/dL (0.3-1.0); Blood Urea Nitrogen 13 mg/dL (8-23); Carbon Dioxide 24 mEq/L (23-29); Chloride 95 mEq/L (98-107); Globulin 3.1 g/dL (2.4-3.5); Glucose 106 mg/dL (70-105); Osmolality,Calculated 277 (280-300); Potassium 4.1 mEq/L (3.5-5.1); Sodium 133 mEq/L (136-145); Total Protein 7.1 g/dL (6.4-8.9); eGFR For African Americans > 60 (> 60); eGFR For Non-African Americans > 60 (> 60)
[2020-12-21 18:59] LABS: Troponin I < 0.03 ng/mL (< 0.04)
[2020-12-21] MEDS ORDERED: Doxycycline 100 MG CAPSULE PO ONE (19:42)
[2020-12-21] MEDS ORDERED: Acetaminophen 325 MG TABLET PO PRN (21:59)
[2020-12-21] MEDS ORDERED: Naloxone 0.4 MG/ML INJ IVP PRN (21:59)
[2020-12-21] MEDS ORDERED: Ondansetron 4 MG/2 ML VIAL IVP PRN (21:59)
[2020-12-22] MEDS: *HR* Heparin 5,000 UNIT/ML VIAL SQ SCH ×2 (06:05→16:39)
[2020-12-22] MEDS: Doxycycline 100 MG CAPSULE PO SCH ×2 (09:47→20:39)
[2020-12-22] MEDS: CeFAZolin 2,000 MG/120 ML BAG IVPB SCH ×2 (17:39→23:08)
[2020-12-22] MEDS: Sennosides/Docusate Sodium TABLET PO SCH (20:38)
[2020-12-23] MEDS: *HR* Enoxaparin 40 MG/0.4 ML SYRINGE SQ SCH (05:12)
[2020-12-23 05:50] LABS: Hematocrit 37.8 % (35.3-44.9); Hemoglobin 12.6 g/dL (11.5-15.4); Mean Corpuscular HGB Conc 33.3 g/dL (31.6-35.5); Mean Corpuscular Hemoglobin 31.3 pg (28.0-33.3); Mean Corpuscular Volume 93.8 fL (83.0-100.0); Mean Platelet Volume 9.7 fL (9.4-12.4); Platelet Count 185 K/mcL (140-400); Red Blood Count 4.03 M/mcL (3.82-4.97); Red Cell Distribution Width 13.1 % (11.5-14.5); White Blood Count 3.6 K/mcL (4.3-11.1)
[2020-12-23 06:09] LABS: Alanine Aminotransferase 14 Units/L (7-52); Albumin 3.3 g/dL (3.5-5.7); Albumin/Globulin Ratio 1.3 (1.1-2.2); Alkaline Phosphatase 42 Units/L (34-104); Aspartate Amino Transferase 27 Units/L (13-39); BUN/Creatinine Ratio 16 (6-26); Bilirubin,Direct 0.1 mg/dL (0.0-0.2); Bilirubin,Indirect 0.2 mg/dL (0.0-1.0); Bilirubin,Total 0.3 mg/dL (0.3-1.0); Blood Urea Nitrogen 12 mg/dL (8-23); Calcium 8.3 mg/dL (8.6-10.3); Carbon Dioxide 30 mEq/L (23-29); Chloride 103 mEq/L (98-107); Globulin 2.6 g/dL (2.4-3.5); Glucose 99 mg/dL (70-105); Osmolality,Calculated 284 (280-300); Potassium 3.5 mEq/L (3.5-5.1); Sodium 137 mEq/L (136-145); Total Protein 5.9 g/dL (6.4-8.9); eGFR For African Americans > 60 (> 60); eGFR For Non-African Americans > 60 (> 60)
[2020-12-23] MEDS: CeFAZolin 2,000 MG/120 ML BAG IVPB SCH ×2 (08:03→16:01)
[2020-12-23] MEDS: Doxycycline 100 MG CAPSULE PO SCH ×2 (08:03→20:27)
[2020-12-23 14:00] LABS: Acinetobacter baumannii by PCR Not Detected (Not Detect); Candida albicans by PCR Not Detected (Not Detect); Candida glabrata by PCR Not Detected (Not Detect); Candida krusei by PCR Not Detected (Not Detect); Candida parapsilosis by PCR Not Detected (Not Detect); Candida tropicalis by PCR Not Detected (Not Detect); Enterobacter cloacae Cmplx PCR Not Detected (Not Detect); Enterobacteriaceae by PCR Not Detected (Not Detect); Enterococcus by PCR Not Detected (Not Detect); Escherichia coli by PCR Not Detected (Not Detect); Klebsiella oxytoca by PCR Not Detected (Not Detect); Klebsiella pneumoniae by PCR Not Detected (Not Detect); Proteus by PCR Not Detected (Not Detect); Pseudomonas aeruginosa by PCR Not Detected (Not Detect); Serratia marcescens by PCR Not Detected (Not Detect); Staphylococcus aureus by PCR Not Detected (Not Detect); Staphylococcus by PCR DETECTED (Not Detect); Streptococcus agalactiae(B)PCR Not Detected (Not Detect); Streptococcus by PCR Not Detected (Not Detect); Streptococcus pneumoniae PCR Not Detected (Not Detect); Streptococcus pyogenes (A) PCR Not Detected (Not Detect); mecA Methicillin-Resist Gene Not Detected (Not Detect)
[2020-12-23] MEDS: Sennosides/Docusate Sodium TABLET PO SCH (20:26)
[2020-12-24] MEDS: CeFAZolin 2,000 MG/120 ML BAG IVPB SCH ×4 (01:45→23:48)
[2020-12-24] MEDS: *HR* Enoxaparin 40 MG/0.4 ML SYRINGE SQ SCH (05:53)
[2020-12-24] MEDS: Doxycycline 100 MG CAPSULE PO SCH ×2 (09:30→20:53)
[2020-12-24] MEDS: Sennosides/Docusate Sodium TABLET PO SCH (20:53)
[2020-12-25] MEDS: *HR* Enoxaparin 40 MG/0.4 ML SYRINGE SQ SCH (06:19)
[2020-12-25] MEDS ORDERED: Perflutren Lipid Microsphere 1.3 ML in 0.9 % Sodium Chloride 8.7 ML IVP PRN (07:23)
[2020-12-25 08:11] LABS: Hematocrit 35.4 % (35.3-44.9); Hemoglobin 11.5 g/dL (11.5-15.4); Mean Corpuscular HGB Conc 32.5 g/dL (31.6-35.5); Mean Corpuscular Hemoglobin 31.1 pg (28.0-33.3); Mean Corpuscular Volume 95.7 fL (83.0-100.0); Mean Platelet Volume 9.8 fL (9.4-12.4); Platelet Count 235 K/mcL (140-400); Red Cell Distribution Width 13.3 % (11.5-14.5); White Blood Count 3.7 K/mcL (4.3-11.1)
[2020-12-25 08:39] LABS: BUN/Creatinine Ratio 21 (6-26); Blood Urea Nitrogen 15 mg/dL (8-23); Calcium 8.2 mg/dL (8.6-10.3); Carbon Dioxide 30 mEq/L (23-29); Chloride 106 mEq/L (98-107); Glucose 87 mg/dL (70-105); Osmolality,Calculated 292 (280-300); Sodium 141 mEq/L (136-145); eGFR For African Americans > 60 (> 60); eGFR For Non-African Americans > 60 (> 60)
[2020-12-25] MEDS: Doxycycline 100 MG CAPSULE PO SCH (08:43)
[2020-12-25] MEDS: CeFAZolin 2,000 MG/120 ML BAG IVPB SCH (09:23)
[2020-12-25 11:21] VITALS: BP 126/79
== END 2020-12-25 14:08 | disposition home or self-care (01) | DRG 872 ==
LOC: 3ANU 16:26 → EMEROOARM 16:26 → SUATTDRO 21:46 → 3ANU 22:30
PROVIDERS: ADMIT Family Medicine; ATTEND Internal Medicine